=== PATIENT | female | born 1935 | race Asian ===

== ENCOUNTER → 2018-04-26 | Outpatient (CLI) | payer MEDICARE, OTHER ==
[~2018-04-26] VITALS: Ht 152.4 cm; Wt 80.0 kg
[~2018-04-26] MED LIST: ASPI-1182 PO; BACL10TA PO; CHOL100034 PO; FUROSEMIDE; GABA-533 PO; GABA600T PO; LOSA1TAB37 PO; OMEP20 PO; PROZ10 PO; SPIRONOLACTONE; TRAZ-220 PO
[2018-04-26 10:59] VITALS: BP 136/40
== END | disposition home or self-care (01) ==
LOC: SRCNTR 10:47
PROVIDERS: ATTEND Internal Medicine Cardiovascular Disease
DX: G50.0 Trigeminal neuralgia (principal); J44.9 Chronic obstructive pulmonary disease, unspecified; R07.9 Chest pain, unspecified; M79.7 Fibromyalgia; I10 Essential (primary) hypertension
CPT/HCPCS: G0463